=== PATIENT | female | born 1985 | race Caucasian/White ===

== ENCOUNTER 2017-09-16 20:14 | Inpatient (IN) | payer MEDICAID, OTHER ==
[2017-09-16 20:15] VITALS: BMI 37.0
[2017-09-16] MEDS ORDERED: Piperacillin/Tazobact 3.375 gm 100 ML IV STA (21:41)
--- NOTE | 2017-09-16 21:46 | C.PDOC ---
History Of Present Illness 32 yo female c/o rectal swelling and pain for 3 days. Pt notes she feels a bump there. Denies straining with BM, rectal bleeding, vaginal bleeding or pain, fever. Notes she shaved two weeks ago. Time Seen by Provider: 09/16/17 20:45 Chief Complaint (Nursing): GI Problem History Per: Patient History/Exam Limitations: no limitations Onset/Duration Of Symptoms: Days Current Symptoms Are (Timing): Still Present Past Medical History Vital Signs: Last Vital Signs Temp 98.7 F 09/16/17 20:39 Pulse 78 09/16/17 20:39 Resp 20 09/16/17 20:39 BP 129/78 09/16/17 20:39 Pulse Ox 98 09/16/17 21:48 - Medical History PMH: Personality Disorder Family History: States: Unknown Family Hx - Social History Hx Alcohol Use: No Hx Substance Use: No - Immunization History Hx Tetanus Toxoid Vaccination: Yes Hx Influenza Vaccination: Yes Hx Pneumococcal Vaccination: No Review Of Systems Except As Marked, All Systems Reviewed And Found Negative. Gastrointestinal: Positive for: Rectal Pain Physical Exam - Physical Exam Appears: Well, Non-toxic, No Acute Distress Skin: Warm, Dry, Other ((+) induration and tenderness to the 5 oclock perirectal area.) Head: Atraumatic, Normacephalic Eye(s): bilateral: Normal Inspection, EOMI Nose: Normal Oral Mucosa: Moist Neck: Normal, Normal ROM, Supple Chest: Symmetrical Cardiovascular: Rhythm Regular Respiratory: Normal Breath Sounds, No Accessory Muscle Use Gastrointestinal/Abdominal: Normal Exam, Soft, No Tenderness Rectal: No Hemorrhoids, Tenderness Back: Normal Inspection Extremity: Normal ROM Neurological/Psych: Oriented x3, Normal Speech ED Course And Treatment - Laboratory Results Result Diagrams: 09/16/17 22:02 O2 Sat by Pulse Oximetry: 98 Progress Note: TOradol and Zosyn ordered. Dr Heck took over pts care at 10 pm pending labs [address] CT. Disposition - Disposition Disposition: HOME/ ROUTINE Disposition Time: 21:47 Condition: STABLE Forms: [employer] (Estonian) - Clinical Impression Clinical Impression: Perirectal abscess
[2017-09-16 22:05] LABS: BASO # 0.1 K/uL (0.0-0.2); BASO % 0.9 % (0.0-2.0); EOS # 0.2 K/uL (0.0-0.7); EOS % 1.7 % (0.0-4.0); HEMOGLOBIN 12.2 g/dL (11.0-16.0); LYMPH # 2.4 K/uL (1.0-4.3); MEAN CELL VOLUME 83.4 fL (81.0-99.0); MEAN CORPUSCULAR HEMOGLOBIN 27.2 pg (27.0-31.0); MEAN CORPUSCULAR HGB CONC 32.6 g/dL (33.0-37.0); MONO # 0.6 K/uL (0.0-0.8); NEUT # 5.9 K/uL (1.8-7.0); NEUT % 64.4 % (50.0-75.0); NRBC % 0.1 % (0.0-2.0); RBC 4.49 Mil/uL (3.80-5.20); RED CELL DISTRIBUTION WIDTH 14.4 % (11.5-14.5); WHITE BLOOD COUNT 9.2 K/uL (4.8-10.8)
[2017-09-16 22:26] LABS: ALB/GLOB RATIO 1.1 (1.0-2.1); ALBUMIN 4.3 g/dL (3.5-5.0); ALT/SGPT 29 U/L (9-52); AST/SGOT 19 U/L (14-36); BLOOD UREA NITROGEN 9 mg/dL (7-17); GFR AFRICAN-AMERICAN > 60; GFR NON-AFRICAN AMERICAN > 60
[2017-09-16] MEDS ORDERED: Iodixanol 320 MG/ML 100 ML BOTTLE IV ONE (22:32)
--- NOTE | 2017-09-16 23:57 | CT ---
EXAM: CT Pelvis With Intravenous Contrast EXAM DATE/TIME: 09/16/2017 9:41 PM CLINICAL HISTORY: 32 years old, female; Pain; Perianal pain; Patient HX: Cut herself shaving; Additional info: R/O perirectal abscess TECHNIQUE: Axial computed tomography images of the pelvis with intravenous contrast. All CT scans at this facility use one or more dose reduction techniques, viz.: automated exposure control; ma/kV adjustment per patient size (including targeted exams where dose is matched to indication; i.e. head); or iterative reconstruction technique. Coronal and sagittal reformatted images were created and reviewed. CONTRAST: 100 mL of VISIPAQUE administered intravenously. COMPARISON: There are no prior studies for comparison. FINDINGS: Bowel: There is a nonobstructive bowel gas pattern. Ileocecal region is unremarkable. There is minimal diverticulosis. There is a 2.5 x 1.8 x 2.3 cm left perirectal abscess Intraperitoneal space: There is no free air or free fluid. Bladder: unremarkable Reproductive: Uterus and adnexal structures are unremarkable. There is an IUD. Bones/joints: There are no acute osseous abnormalities. Soft tissues: There is a small fat containing umbilical hernia. Vasculature: Vascular structures are unremarkable. Lymph nodes: There is no pathologic adenopathy. IMPRESSION: 2.5 x 1.8 x 2.3 cm left perirectal abscess Additional nonemergent findings as described above.
[2017-09-17] MEDS ORDERED: metroNIDAZOLE IV 500 mg/100 ml 500 MG/100 ML BAG IVPB SCH (00:15)
[2017-09-17] MEDS ORDERED: metroNIDAZOLE IV 500 mg/100 ml 500 MG/100 ML BAG ONE (00:39)
[2017-09-17] MEDS ORDERED: Morphine 4 MG/ML VIAL IVP PRN ×2 (00:54→11:01)
[2017-09-17] MEDS ORDERED: Sodium Chloride 0.9% 1,000 ML IV SCH (01:00)
--- NOTE | 2017-09-17 01:02 | CP.PCM.HP ---
Addendum entered and electronically signed by Justyna Tello 09/17/17 02:18 : Pelvic CT: 2.5 x1.8 x 2.3cm perirectal abscess Original Note: <RosscullenJustyna L. - Last Filed: 09/17/17 02:01> History of Present Illness - History of Present Illness History of Present Illness: CC: itching and bump near rectum HPI: Patient is a 32 y/o F with no significant PMHx who presents for 2 days of rectal itching. Patient says the itching started randomly and has been progressively getting worse. Patient denies pain, but admits to discomfort and says it is now difficult for her to sit. Patient felt a small bump near her rectum on the left side. Patient said she looked in the mirror, but did not see anything. Patient has had no trauma to the area. Patient did shave the area about 2 weeks ago. Patient has no pain with BM or bleeding. Patient had a normal BM today. Patient has no urinary symptoms. Patient took Ibuprofen at home yesterday and today which helped. Patient says she has had a similar presentation twice in the past. Once it went away on its own and another time she was given antibiotics for it and then it opened and drained on its own. Patient has not been sick recently. Patient denies chest pain, shortness of breath, abdominal pain, nausea, vomiting, constipation, or diarrhea. Patient has no pain with BM or bleeding. Patient has no urinary symptoms. Allergies: NKDA PMD:none PMHx: denies Psurg: 2014 Famhx: denies Socialhx: denies tobacco, alcohol, drugs. Lives with child and , stay at home mom Home meds: denies Present on Admission - Present on Admission Any Indicators Present on Admission: No History of DVT/PE: No History of Uncontrolled Diabetes: No Urinary Catheter: No Decubitus Ulcer Present: No Review of Systems - Constitutional Constitutional: absent: Chills, Fever - EENT Eyes: absent: Blurred Vision Nose/Mouth/Throat: absent: Sore Throat - Cardiovascular Cardiovascular: absent: Chest Pain, Dyspnea, Leg Edema, Palpitations - Respiratory Respiratory: absent: Cough, Dyspnea - Gastrointestinal Gastrointestinal: absent: Abdominal Pain, Constipation, Diarrhea, Melena, Nausea , Vomiting - Genitourinary Genitourinary: absent: Dysuria, Urinary Frequency - Integumentary Integumentary: Pruritus Additional comments: left sided perirectal lesion that causes itching and discomfort Past Patient History - Past Social History Smoking Status: Never Smoked - PSYCHIATRIC Hx Substance Use: No - SURGICAL HISTORY Hx Surgeries: Yes Hx Section: Yes - ANESTHESIA Hx Anesthesia: Yes Hx Anesthesia Reactions: No Hx Malignant Hyperthermia: No Meds Allergies/Adverse Reactions: Allergies Allergy/AdvReac Type Severity Reaction Status Date / Time No Known Allergies Allergy Unverified 08/08/15 19:50 Physical Exam - Constitutional Appears: Non-toxic, No Acute Distress - Head Exam Head Exam: ATRAUMATIC, NORMAL INSPECTION, NORMOCEPHALIC - Eye Exam Eye Exam: EOMI, Normal appearance - ENT Exam ENT Exam: Mucous Membranes Moist - Respiratory Exam Respiratory Exam: Clear to Auscultation Bilateral, NORMAL BREATHING PATTERN - Cardiovascular Exam Cardiovascular Exam: REGULAR RHYTHM, RRR, +S1, +S2 - GI/Abdominal Exam GI & Abdominal Exam: Normal Bowel Sounds, Soft. absent: Tenderness - Rectal Exam Rectal Exam: absent: Black Stool, Bloody Stool, Hemorrhoids Additional comments: left sided elevated hard lesion next to rectum, tender to palpation no tenderness to palpation on rectal exam - Extremities Exam Extremities exam: Positive for: normal inspection. Negative for: pedal edema, tenderness - Neurological Exam Neurological exam: Alert, Oriented x3 - Psychiatric Exam Psychiatric exam: Normal Affect, Normal Mood - Skin Skin Exam: Intact, Normal Color, Warm Additional comments: left sided elevated hard lesion next to rectum, tender to palpation. no drainage Results - Vital Signs Recent Vital Signs: Last Vital Signs Temp 98 F 09/17/17 00:32 Pulse 83 09/17/17 00:32 Resp 18 09/17/17 00:32 BP 127/72 09/17/17 00:32 Pulse Ox 100 09/17/17 00:32 - Labs Result Diagrams: 09/16/17 22:02 09/16/17 22:02 Labs: Laboratory Results - last 24 hr 09/16/17 09/16/17 22:02 22:02 WBC 9.2 RBC 4.49 Hgb 12.2 Hct 37.5 MCV 83.4 MCH 27.2 MCHC 32.6 L RDW 14.4 Plt Count 242 MPV 10.0 Neut % (Auto) 64.4 Lymph % (Auto) 26.0 Banner % (Auto) 7.0 Eos % (Auto) 1.7 Baso % (Auto) 0.9 Neut # (Auto) 5.9 Lymph # (Auto) 2.4 Banner # (Auto) 0.6 Eos # (Auto) 0.2 Baso # (Auto) 0.1 Sodium 141 Potassium 3.8 Chloride 100 Carbon Dioxide 26 Anion Gap 18 BUN 9 Creatinine 0.6 L Est GFR ( Amer) > 60 Est GFR (Non-Af Amer) > 60 Random Glucose 88 Calcium 9.0 Total Bilirubin 0.5 AST 19 ALT 29 Alkaline Phosphatase 85 Total Protein 8.0 Albumin 4.3 Globulin 3.7 Albumin/Globulin Ratio 1.1 Assessment & Plan - Assessment and Plan (Free Text) Assessment: Perirectal abscess Cipro 400mg q12h Flagyl 500mg q8h Tylenol 650mg q6h prn Surgery consulted, Dr. Barger, help appreciated NPO Prophylaxis no GI prophylaxis indicated SCDs <Alex Delgado P - Last Filed: 09/17/17 06:13> Results - Vital Signs Recent Vital Signs: Last Vital Signs Temp 98.3 F 09/17/17 01:35 Pulse 80 09/17/17 01:35 Resp 20 09/17/17 01:35 BP 112/60 09/17/17 01:35 Pulse Ox 98 09/17/17 01:35 - Labs Result Diagrams: 09/16/17 22:02 09/16/17 22:02 Labs: Laboratory Results - last 24 hr 09/16/17 09/16/17 22:02 22:02 WBC 9.2 RBC 4.49 Hgb 12.2 Hct 37.5 MCV 83.4 MCH 27.2 MCHC 32.6 L RDW 14.4 Plt Count 242 MPV 10.0 Neut % (Auto) 64.4 Lymph % (Auto) 26.0 Banner % (Auto) 7.0 Eos % (Auto) 1.7 Baso % (Auto) 0.9 Neut # (Auto) 5.9 Lymph # (Auto) 2.4 Banner # (Auto) 0.6 Eos # (Auto) 0.2 Baso # (Auto) 0.1 Sodium 141 Potassium 3.8 Chloride 100 Carbon Dioxide 26 Anion Gap 18 BUN 9 Creatinine 0.6 L Est GFR ( Amer) > 60 Est GFR (Non-Af Amer) > 60 Random Glucose 88 Calcium 9.0 Total Bilirubin 0.5 AST 19 ALT 29 Alkaline Phosphatase 85 Total Protein 8.0 Albumin 4.3 Globulin 3.7 Albumin/Globulin Ratio 1.1 Attending/Attestation - Attestation I have personally seen and examined this patient.: Yes I have fully participated in the care of the patient.: Yes I have reviewed all pertinent clinical information: Yes Notes (Text): Recurrent 3 rd episode of perirectal abscess, suspected fistula, as no connection from out side, behind perineal body on the left side. Plan Surgical eval, if related with rectal fistula may need fistulectomy Cipro and flagyl See orders for detail.
[2017-09-17] MEDS: Ciprofloxacin 400mg/200ml D5W 400 MG/200 ML BAG IVPB SCH ×2 (03:14→15:09)
[2017-09-17] MEDS: Piperacill/Tazo 3.375gm in Dex 3.375 GM/50 ML BAG IVPB SCH ×2 (05:04→12:30)
--- NOTE | 2017-09-17 06:21 | CP.PCM.CON ---
History of Present Illness - History of Present Illness History of Present Illness: General Surgery - Dr. Barger 32 yo F presenting w/ complaint of bump in the perianal region x1day. Pt states she noticed a small bump in the left sided perianal region yesterday which is itchy but she denies any pain in the area. Pt denies drainage from the area. She denies any Fevers, chills, any change in bowel function, bloody stool or diarrhea. She's had this once before in the past but it resolved on its own with antibiotics. PMH: none PSH: csection NKDA CT was done in the ED which shows Left perirectal abscess, surgery was consulted for drainage. Review of Systems - Review of Systems All systems: reviewed and no additional remarkable complaints except (as per HPI ) Past Patient History - Past Medical History & Family History Past Medical History?: Yes - Past Social History Smoking Status: Never Smoked - CARDIAC Hx Cardiac Disorders: No - PULMONARY Hx Respiratory Disorders: No - NEUROLOGICAL Hx Neurological Disorder: No - HEENT Hx HEENT Problems: No - RENAL Hx Chronic Kidney Disease: No - ENDOCRINE/METABOLIC Hx Endocrine Disorders: No - HEMATOLOGICAL/ONCOLOGICAL Hx Blood Disorders: No - INTEGUMENTARY Hx Dermatological Problems: No - MUSCULOSKELETAL/RHEUMATOLOGICAL Hx Musculoskeletal Disorders: No Hx Falls: No - GASTROINTESTINAL Hx Gastrointestinal Disorders: No - GENITOURINARY/GYNECOLOGICAL Hx Genitourinary Disorders: No - PSYCHIATRIC Hx Substance Use: No - SURGICAL HISTORY Hx Surgeries: Yes Hx Section: Yes - ANESTHESIA Hx Anesthesia: Yes Hx Anesthesia Reactions: No Hx Malignant Hyperthermia: No Meds Allergies/Adverse Reactions: Allergies Allergy/AdvReac Type Severity Reaction Status Date / Time No Known Allergies Allergy Unverified 08/08/15 19:50 - Medications Medications: Current Medications Acetaminophen (Tylenol 325mg Tab) 650 mg PO Q6 PRN PRN Reason: Pain, moderate (4-7) Metronidazole (Flagyl) 500 mg in 100 mls @ 100 mls/hr IVPB STAT [facility] PRN Reason: Protocol Piperacillin Sod/Tazobactam Sod (Zosyn 3.375 Gm Iv Premix) 3.375 gm in 50 mls @ 100 mls/hr IVPB Q6H [facility]UD[facility] PRN Reason: Protocol Last Admin: 09/17/17 05:04 Dose: 100 mls/hr Sodium Chloride (Sodium Chloride 0.9%) 1,000 mls @ 150 mls/hr IV .Q6H40M [facility] Last Admin: 09/17/17 01:35 Dose: 150 mls/hr Ciprofloxacin (Cipro 400mg/200ml Dsw) 400 mg in 200 mls @ 133 mls/hr IVPB Q12H [facility] PRN Reason: Protocol Last Admin: 09/17/17 03:14 Dose: 133 mls/hr Metronidazole (Flagyl) 500 mg in 100 mls @ 100 mls/hr IVPB Q8 [facility] PRN Reason: Protocol Morphine Sulfate (Morphine) 4 mg IVP Q4 PRN PRN Reason: Pain, moderate (4-7) Pneumococcal Polyvalent Vaccine (Pneumovax 23 Vaccine) 0.5 ml IM .ONCE ONE Stop: 09/19/17 10:01 Physical Exam - Constitutional Appears: Well, No Acute Distress - Head Exam Head Exam: ATRAUMATIC, NORMAL INSPECTION, NORMOCEPHALIC - Eye Exam Eye Exam: Normal appearance - Respiratory Exam Respiratory Exam: NORMAL BREATHING PATTERN. absent: Respiratory Distress - Cardiovascular Exam Cardiovascular Exam: REGULAR RHYTHM - GI/Abdominal Exam GI & Abdominal Exam: Soft - Neurological Exam Neurological exam: Alert, Oriented x3 - Psychiatric Exam Psychiatric exam: Normal Affect, Normal Mood - Skin Skin Exam: Dry, Intact Results - Vital Signs Recent Vital Signs: Last Vital Signs Temp 98.3 F 09/17/17 01:35 Pulse 80 09/17/17 01:35 Resp 20 09/17/17 01:35 BP 112/60 09/17/17 01:35 Pulse Ox 98 09/17/17 01:35 - Labs Result Diagrams: 09/16/17 22:02 09/16/17 22:02 Labs: Laboratory Results - last 24 hr 09/16/17 09/16/17 22:02 22:02 WBC 9.2 RBC 4.49 Hgb 12.2 Hct 37.5 MCV 83.4 MCH 27.2 MCHC 32.6 L RDW 14.4 Plt Count 242 MPV 10.0 Neut % (Auto) 64.4 Lymph % (Auto) 26.0 Reeves % (Auto) 7.0 Eos % (Auto) 1.7 Baso % (Auto) 0.9 Neut # (Auto) 5.9 Lymph # (Auto) 2.4 Reeves # (Auto) 0.6 Eos # (Auto) 0.2 Baso # (Auto) 0.1 Sodium 141 Potassium 3.8 Chloride 100 Carbon Dioxide 26 Anion Gap 18 BUN 9 Creatinine 0.6 L Est GFR ( Amer) > 60 Est GFR (Non-Af Amer) > 60 Random Glucose 88 Calcium 9.0 Total Bilirubin 0.5 AST 19 ALT 29 Alkaline Phosphatase 85 Total Protein 8.0 Albumin 4.3 Globulin 3.7 Albumin/Globulin Ratio 1.1 Assessment & Plan - Assessment and Plan (Free Text) Assessment: 32 yo F w/ L perirectal abscess -NPO, IVF, Pain control, Abx -OR for I&D of abscess today Dw Dr Barger
[2017-09-17] MEDS: metroNIDAZOLE IV 500 mg/100 ml 500 MG/100 ML BAG IVPB SCH ×2 (06:23→13:48)
[2017-09-17] MEDS ORDERED: Lidocaine/Epinephrine 1% 1:100000 10 ML IJ ONE (09:59)
[2017-09-17] MEDS ORDERED: Bupivacaine 0.25% Inj(30mL) ONE (09:59)
[2017-09-17] MEDS ORDERED: Propofol 10 mg/ml Inj (20 ML) ONE (10:00)
[2017-09-17] MEDS ORDERED: Midazolam 2 MG/2 ML VIAL ONE (10:00)
--- NOTE | 2017-09-17 10:49 | PCM.SURG1 ---
Surgeon's Initial Post Op Note - Surgeon's Notes Surgeon: Dr. Barger Clerk Operator: Feliberto PGY1 Type of Anesthesia: General Endo Pre-Operative Diagnosis: Perianal Abscess Operative Findings: see operative report. Purulent material expressed. Packed with 1/2in iodoform Post-Operative Diagnosis: same Operation Performed: Incision and drainage of perianal abscess Specimen/Specimens Removed: Wound culture Estimated Blood Loss: EBL {In ML}: 10 Blood Products Given: N/A Post-Op Condition: Good Date of Surgery/Procedure: 09/17/17 Time of Surgery/Procedure: 10:52
[2017-09-17] MEDS ORDERED: Oxycodone/Acetaminophen 5/325 mg Tab PO PRN (10:59)
--- NOTE | 2017-09-17 11:05 | CP.PCM.PCO ---
Assessment/Plan - Assessment and Plan (Free Text) Assessment: 32yo F with Perianal/perirectal abscess. s/p I&D 09/17. POD#0 Plan: - Patient is cleared for discharge from surgical standpoint - Wound cultures have been sent. - Continue full course of PO Abx as per primary team - Pain management: Percocet prescription on chart - Leave Iodoform packing in place for 48hours. No need to replace iodoform. Replace/reinforce dressing as needed with clean gauze. - Follow up with Dr. Barger in office. Call for appointment. Further recs as per Dr. Denita Dao PGY1 surgery pager: [phone]
[2017-09-17] MEDS: HYDROmorphone 0.5 mg/0.5 ml ISec IVP PRN ×2 (11:10→11:30)
[2017-09-17] MEDS ORDERED: Lactated Ringer's 1,000 ML IV ONE (11:45)
--- NOTE | 2017-09-17 12:00 | CP.PCM.DIS ---
<Abhi Tejada - Last Filed: 09/17/17 11:56> Provider - Provider Date of Admission: 09/17/17 00:31 Attending physician: Alex Delgado MD Primary care physician: PMD: none Consults: General Surgeon: Dr Marcelino Barger Time Spent in preparation of Discharge (in minutes): 35 Hospital Course - Lab Results Lab Results: Most Recent Lab Values WBC 9.2 K/uL (4.8-10.8) 09/16/17 22:02 RBC 4.49 Mil/uL (3.80-5.20) 09/16/17 22:02 Hgb 12.2 g/dL (11.0-16.0) 09/16/17 22: Hct 37.5 % (34.0-47.0) 09/16/17 22: MCV 83.4 fL (81.0-99.0) 09/16/17 22: MCH 27.2 pg (27.0-31.0) 09/16/17 22: MCHC 32.6 g/dL (33.0-37.0) L 09/16/17 22: RDW 14.4 % (11.5-14.5) 09/16/17 22:02 Plt Count 242 K/uL (130-400) 09/16/17 22:02 MPV 10.0 fL (7.2-11.7) 09/16/17 22:02 Neut % (Auto) 64.4 % (50.0-75.0) 09/16/17 22: Lymph % (Auto) 26.0 % (20.0-40.0) 09/16/17 22:02 Winn % (Auto) 7.0 % (0.0-10.0) 09/16/17 22: Eos % (Auto) 1.7 % (0.0-4.0) 09/16/17 22: Baso % (Auto) 0.9 % (0.0-2.0) 09/16/17 22: Neut # (Auto) 5.9 K/uL (1.8-7.0) 09/16/17 22: Lymph # (Auto) 2.4 K/uL (1.0-4.3) 09/16/17 22:02 Winn # (Auto) 0.6 K/uL (0.0-0.8) 09/16/17 22:02 Eos # (Auto) 0.2 K/uL (0.0-0.7) 09/16/17 22:02 Baso # (Auto) 0.1 K/uL (0.0-0.2) 09/16/17 22:02 Sodium 141 mmol/L (132-148) 09/16/17 22:02 Potassium 3.8 mmol/L (3.6-5.2) 09/16/17 22:02 Chloride 100 mmol/L (98-107) 09/16/17 22:02 Carbon Dioxide 26 mmol/L (22-30) 09/16/17 22:02 Anion Gap 18 (10-20) 09/16/17 22:02 BUN 9 mg/dL (7-17) 09/16/17 22:02 Creatinine 0.6 mg/dL (0.7-1.2) L 09/16/17 22:02 Est GFR ( Amer) > 60 09/16/17 22:02 Est GFR (Non-Af Amer) > 60 09/16/17 22:02 Random Glucose 88 mg/dL (65-105) 09/16/17 22:02 Calcium 9.0 mg/dl (8.6-10.4) 09/16/17 22:02 Total Bilirubin 0.5 mg/dL (0.2-1.3) 09/16/17 22:02 AST 19 U/L (14-36) 09/16/17 22:02 ALT 29 U/L (9-52) 09/16/17 22:02 Alkaline Phosphatase 85 U/L (38-126) 09/16/17 22:02 Total Protein 8.0 g/dL (6.3-8.3) 09/16/17 22:02 Albumin 4.3 g/dL (3.5-5.0) 09/16/17 22:02 Globulin 3.7 gm/dL (2.2-3.9) 09/16/17 22:02 Albumin/Globulin Ratio 1.1 (1.0-2.1) 09/16/17 22:02 Urine HCG, Qual Negative (NEGATIVE) 09/17/17 08:25 - Hospital Course Hospital Course: CC: itching and bump near rectum HPI: Patient is a 32 y/o F with no significant PMHx who presents for 2 days of rectal itching. Patient says the itching started randomly and has been progressively getting worse. Patient denies pain, but admits to discomfort and says it is now difficult for her to sit. Patient felt a small bump near her rectum on the left side. Patient said she looked in the mirror, but did not see anything. Patient has had no trauma to the area. Patient did shave the area about 2 weeks ago. Patient has no pain with BM or bleeding. Patient had a normal BM today. Patient has no urinary symptoms. Patient took Ibuprofen at home yesterday and today which helped. Patient says she has had a similar presentation twice in the past. Once it went away on its own and another time she was given antibiotics for it and then it opened and drained on its own. Patient has not been sick recently. Patient denies chest pain, shortness of breath, abdominal pain, nausea, vomiting, constipation, or diarrhea. Patient has no pain with BM or bleeding. Patient has no urinary symptoms. Allergies: NKDA PMD:none PMHx: denies Psurg: 2016 Famhx: denies Socialhx: denies tobacco, alcohol, drugs. Lives with child and , stay at home mom Home meds: denies HOSPITAL COURSE: Patient was determined to have a perianal/perirectal abscess. General surgery was consulted and she was taken to the OR with surgeon Dr Marcelino Barger who performed a incision and drainage. Upon discharge she was given a script for 1 week course of Augment 875mg PO BID as well as percocet. Discharge instructions per surgery were relayed to the patient. She never had a white count and she was afebrile. While in house she was given cipro and flagyl and morphine for pain control. Would cultures were sent out. I've included the latest progress note below for details on management: Perirectal abscess Cipro 400mg q12h Flagyl 500mg q8h Tylenol 650mg q6h prn Surgery consulted, Dr. Barger, help appreciated NPO Prophylaxis no GI prophylaxis indicated SCDs Discharge Exam - Additional Findings Additional findings: - Constitutional Appears: Non-toxic, No Acute Distress - Head Exam Head Exam: ATRAUMATIC, NORMAL INSPECTION, NORMOCEPHALIC - Eye Exam Eye Exam: EOMI, Normal appearance - ENT Exam ENT Exam: Mucous Membranes Moist - Respiratory Exam Respiratory Exam: Clear to Auscultation Bilateral, NORMAL BREATHING PATTERN - Cardiovascular Exam Cardiovascular Exam: REGULAR RHYTHM, RRR, +S1, +S2 - GI/Abdominal Exam GI & Abdominal Exam: Normal Bowel Sounds, Soft. absent: Tenderness - Rectal Exam Rectal Exam: absent: Black Stool, Bloody Stool, Hemorrhoids Additional comments: packing in place - c/d/i - Extremities Exam Extremities exam: Positive for: normal inspection. Negative for: pedal edema, tenderness - Neurological Exam Neurological exam: Alert, Oriented x3 - Psychiatric Exam Psychiatric exam: Normal Affect, Normal Mood - Skin Skin Exam: Intact, Normal Color, Warm Additional comments: Discharge Plan - Follow Up Plan Condition: STABLE Disposition: HOME/ ROUTINE Instructions: Wound Incision and Drainage (DC), Managing Pain After Surgery, Abscess (GEN) Additional Instructions: Patient is medically stable for discharge. Patient will be given the following scripts: 1. Augmentin 875mg taken by mouth at breakfast and dinner for 7 days 2. Percocet - take 1 tablet for pain relief Diarrhea can be a side-effect of the antibiotic. Take a probiotic yogurt (over the counter) to decrease the chances of diarrhea. Please make an appointment and follow-up with Dr Barger (the surgeon who performed your surgery) in 1 week. . Address: [address] [place] [address]. Per surgery, leave Iodoform packing in place for 48hours. No need to replace iodoform. Replace/reinforce dressing as needed with clean gauze. If symptoms return please go to your nearest emergency department. Referrals: Marcelino Barger MD [Staff Provider] - <Demetrius Uribe - Last Filed: 09/17/17 15:52> Provider - Provider Date of Admission: 09/17/17 00:31 Attending physician: Alex Delgado MD Hospital Course - Lab Results Lab Results: Most Recent Lab Values WBC 9.2 K/uL (4.8-10.8) 09/16/17 22:02 RBC 4.49 Mil/uL (3.80-5.20) 09/16/17 22:02 Hgb 12.2 g/dL (11.0-16.0) 09/16/17 22: Hct 37.5 % (34.0-47.0) 09/16/17 22: MCV 83.4 fL (81.0-99.0) 09/16/17 22: MCH 27.2 pg (27.0-31.0) 09/16/17 22: MCHC 32.6 g/dL (33.0-37.0) L 09/16/17: RDW 14.4 % (11.5-14.5) 09/16/17: Plt Count 242 K/uL (130-400) 09/16/17: MPV 10.0 fL (7.2-11.7) 09/16/17: Neut % (Auto) 64.4 % (50.0-75.0) 09/16/17: Lymph % (Auto) 26.0 % (20.0-40.0) 09/16/17: Winn % (Auto) 7.0 % (0.0-10.0) 09/16/17: Eos % (Auto) 1.7 % (0.0-4.0) 09/16/17: Baso % (Auto) 0.9 % (0.0-2.0) 09/16/17: Neut # (Auto) 5.9 K/uL (1.8-7.0) 09/16/17: Lymph # (Auto) 2.4 K/uL (1.0-4.3) 09/16/17 22: Winn # (Auto) 0.6 K/uL (0.0-0.8) 09/16/17 22: Eos # (Auto) 0.2 K/uL (0.0-0.7) 09/16/17: Baso # (Auto) 0.1 K/uL (0.0-0.2) 09/16/17 22: Sodium 141 mmol/L (132-148) 09/16/17 22: Potassium 3.8 mmol/L (3.6-5.2) 09/16/17 22: Chloride 100 mmol/L (98-107) 09/16/17 22:02 Carbon Dioxide 26 mmol/L (22-30) 09/16/17 22:02 Anion Gap 18 (10-20) 09/16/17 22:02 BUN 9 mg/dL (7-17) 09/16/17 22:02 Creatinine 0.6 mg/dL (0.7-1.2) L 09/16/17 22:02 Est GFR ( Amer) > 60 09/16/17 22:02 Est GFR (Non-Af Amer) > 60 09/16/17 22:02 Random Glucose 88 mg/dL (65-105) 09/16/17 22:02 Calcium 9.0 mg/dl (8.6-10.4) 09/16/17 22:02 Total Bilirubin 0.5 mg/dL (0.2-1.3) 09/16/17 22:02 AST 19 U/L (14-36) 09/16/17 22:02 ALT 29 U/L (9-52) 09/16/17 22:02 Alkaline Phosphatase 85 U/L (38-126) 09/16/17 22:02 Total Protein 8.0 g/dL (6.3-8.3) 09/16/17 22:02 Albumin 4.3 g/dL (3.5-5.0) 09/16/17 22:02 Globulin 3.7 gm/dL (2.2-3.9) 09/16/17 22:02 Albumin/Globulin Ratio 1.1 (1.0-2.1) 09/16/17 22:02 Urine HCG, Qual Negative (NEGATIVE) 09/17/17 08:25 Attending/Attestation - Attestation I have personally seen and examined this patient.: Yes I have fully participated in the care of the patient.: Yes I have reviewed all pertinent clinical information, including history, physical exam and plan: Yes Notes (Text): 09/17/17 15:52 Medical attending: Patient was seen and examined by me, agrees the above note by the medical collections representative. Patient was seen in PACU. She was awake and alert, she was having some pain she reported however was moderate. She's given need to continue taking oral antibiotics by mouth for the next 7 days. There is also a prescription for Percocet by surgery team that she could take for pain control. She'll need to leave the packing in for 48 hours. And also follow up with surgery outpatient Thank you very much, Demetrius Uribe
[2017-09-17 15:41] VITALS: BP 118/65; PULSE 50; RESP 20; TEMP 97.4; O2SAT 99
--- NOTE | 2017-09-17 21:54 | OP ---
DATE: 09/17/2017 PREOPERATIVE DIAGNOSIS: Perianal abscess. POSTOPERATIVE DIAGNOSIS: Perianal abscess. PROCEDURE PERFORMED: Incision and drainage. FINDINGS: There is a large indurated area with a chunk of bowel fluctuation located on the left adrenal area measuring approximately 3 x 3 cm in size from the outside, but there is an induration that extended deeper. PROCEDURE: Under general anesthesia, the patient was prepared and draped in usual sterile fashion. She was placed in an exaggerated lithotomy position. About a 1 inch incision was made over the fluctuant portion of the mesh. Then it was extended all the way down to the abscess cavity. The cavity was then broken into, the pus was then evacuated and the loculations broken with large Henny forceps. The area was irrigated with large amount of saline solution. Irrigating fluid was suctioned out, then the cavity was packed with a 0.5 inch iodoform gauze. Dressings applied. The procedure terminated. ESTIMATED BLOOD LOSS: About 10 mL. COMPLICATIONS: No complications. Marcelino Barger MD
[2017-09-19] MEDS ORDERED: Influenza Vaccine 60 mcg/0.5 mL SYR (4YR UP) IM ONE (10:00)
[2017-09-19] MEDS ORDERED: Pneumococcal 23-Valent Vaccine IM ONE (10:00)
== END 2017-09-17 17:34 | disposition home or self-care (01) | DRG 395 ==
LOC: C.ER 20:14 → C.6T 09-17 00:31
PROVIDERS: ADMIT Internal Medicine; ATTEND Internal Medicine
PROC: 0D9Q0ZX Drainage of Anus, Open Approach, Diagnostic (ICD-10-PCS; principal; 2017-09-17 09:00)
DX: K61.2 Anorectal abscess (principal); F60.9 Personality disorder, unspecified